=== PATIENT | female | born 1970 | race Caucasian/White ===

== ENCOUNTER → 2023-10-19 16:39 | Outpatient (REF) | payer OTHER, SELFPAY | LOC: HWRAD 16:39 | PROVIDERS: ATTENDING PHYSICIAN Physician Assistant Medical | DX: M54.2 Cervicalgia (principal); M54.50 Low back pain, unspecified | CPT/HCPCS: 72050; 72110 ==

== ENCOUNTER → 2023-11-20 10:30 | Outpatient (REF) | payer OTHER, SELFPAY | LOC: HWRAD 10:30 | PROVIDERS: ATTENDING PHYSICIAN Physician Assistant Medical | DX: M40.209 Unspecified kyphosis, site unspecified (principal) | CPT/HCPCS: 77080 ==

== ENCOUNTER 2023-12-13 10:53 | Outpatient (RCR) | payer OTHER, SELFPAY | END 2023-12-13 23:59 | disposition home or self-care (01) | LOC: RPT 10:53 | PROVIDERS: ATTENDING PHYSICIAN Physician Assistant Medical; FAMILY PHYSICIAN Nurse Practitioner | DX: M54.50 Low back pain, unspecified (principal); M40.209 Unspecified kyphosis, site unspecified; M54.2 Cervicalgia | CPT/HCPCS: 97010; 97110; 97112; 97140; 97162 ==

== ENCOUNTER 2023-12-19 12:52 | Outpatient (RCR) | payer OTHER, SELFPAY | END 2024-01-11 13:39 | disposition home or self-care (01) | LOC: RPT 12:52 | PROVIDERS: ATTENDING PHYSICIAN Physician Assistant Medical; FAMILY PHYSICIAN Nurse Practitioner | DX: M54.50 Low back pain, unspecified (principal); M40.209 Unspecified kyphosis, site unspecified; M54.2 Cervicalgia | CPT/HCPCS: 97010; 97110; 97112; 97140 ==

== ENCOUNTER → 2024-08-08 13:04 | Outpatient (REF) | payer OTHER, SELFPAY | LOC: WDC 13:04 | PROVIDERS: ATTENDING PHYSICIAN Nurse Practitioner Family | DX: Z12.31 Encounter for screening mammogram for malignant neoplasm of breast (principal) | CPT/HCPCS: 77063; 77067 ==

== ENCOUNTER → 2024-11-15 10:58 | Outpatient (REF) | payer OTHER, SELFPAY | LOC: WDC 10:58 | PROVIDERS: ATTENDING PHYSICIAN Nurse Practitioner Family; FAMILY PHYSICIAN Physician Assistant Medical | DX: R92.2 Inconclusive mammogram (principal) | CPT/HCPCS: 76641 ==

== ENCOUNTER 2025-03-23 00:27 | Emergency (ER) | payer OTHER, SELFPAY ==
[2025-03-23 00:41] VITALS: BP 119/71
[2025-03-23 01:05] LABS: Hematocrit 41.6 % (37.0-47.0); Hemoglobin 13.8 g/dL (12.0-16.0); Mean Corp Hgb Conc. 33.2 g/dL (33.0-37.0); Mean Corpuscular Volume 95.4 fL (81.0-99.0); Nucleated Red Blood Cells % 0 %; Platelet Count 164 10^3/uL (130-400); Red Cell Dist. Width 11.9 % (11.5-14.5)
[2025-03-23 01:34] LABS: ALT (SGPT) 17 U/L (0-35); AST (SGOT) 24 U/L (14-36); Albumin 4.6 g/dl (3.5-5.0); Alkaline Phosphatase 46 U/L (38-126); Blood Urea Nitrogen 28 mg/dl (7-17); Calcium 9.8 mg/dl (8.4-10.2); Carbon Dioxide 28 mmol/L (22-30); Chloride 104 mmol/L (98-107); Glucose 95 mg/dl (70-99); Lipase 46 U/L (23-300); Potassium 4.3 mmol/L (3.5-5.1); Sodium 138 mmol/L (135-145); Total Protein 7.2 g/dl (6.3-8.2); eGFR > 60.00
[2025-03-23 03:40] VITALS: BP 119/69; BMI 23.6
--- NOTE | 2025-03-23 04:32 | ED.GENMED ---
History of Present Illness
<David Sousa MD, Resident - Last Filed: 03/23/25 06:49>
General
Chief Complaint: Abdominal Pain
Source: patient
Exam Limitations: none
Time Seen by Provider: 03/23/25 04:29
History of Present Illness
History of Present Illness:
This is a 55-year-old female presenting to the emergency department for right-sided lower abdominal pain which started 3 days ago. She informed me that prior to the pain she had diarrhea for 2 days and she utilized 2 capsules of Imodium which
helped with diarrhea, she developed right sided lower abdominal pain which aggravates with any movement and gets better with rest. She rates the pain as 4/10. Reports she has some nausea but no vomiting. Denies any fever or chills, denies chest
pain, shortness of breath, cough, any neurological symptoms.
Denies any recent changes in the medical history
Past History
<David Sousa MD, Resident - Last Filed: 03/23/25 06:49>
Past History
ED Past Medical History: Asthma and Psychiatric (anxiety)
ED Past Surgical History: and Other (Abdominoplasty)
Patient has exhibited threatening behavior?: No
Social History
Tobacco: Non-smoker
Alcohol: None
Drug: None
Personal:
Living: with family
Employment: Employed
Family History
Family History: Hypertension
Review of Systems
<David Sousa MD, Resident - Last Filed: 03/23/25 06:49>
Review of Systems
Allergies reviewed?: Yes
Constitutional: Reports no symptoms
EENT: Reports no symptoms
Respiratory: Reports no symptoms
Cardiac: Reports no symptoms
ABD/GI: Reports abdominal pain and nausea
: Reports no symptoms
Musculoskeletal: Reports no symptoms
Skin: Reports no symptoms
Neurological: Reports no symptoms
Endocrine: Reports no symptoms
Hematologic/Lymphatic: Reports no symptoms
Psychiatric: Reports no symptoms
Phy Exam
<David Sousa MD, Resident - Last Filed: 03/23/25 06:49>
General Physical Exam
General Presentation: well appearing and mild distress
General age: appears stated age
General Skin: warm
General Habitus: normal
General Mental: alert
General Hydration: appears well hydrated
Cardiovascular Exam
Cardiovascular Exam: regular rate/rhythm and no murmur
Pulmonary Exam
Pulmonary Exam: lungs clear and no respiratory distress
Gastrointestinal Exam
Gastrointestinal Exam: normal bowel sounds, soft, guarding, rebound and tender
Neurological Exam
Neurological Exam: alert, oriented x3, no motor deficits and no sensory deficits
Course
<David Sousa MD, Resident - Last Filed: 03/23/25 06:49>
Orders/Labs/Results
Orders:
Orders
03/23/25 00:50
Complete Blood Count/With Diff Urgent
Comprehensive Metabolic Panel Urgent
Lactic Acid Urgent
Lipase Urgent
03/23/25 04:40
CT Abd/pelvis W Iv Cont Urgent
Comment:
Reason For Exam: RLQ abd pain
Abnormal Lab Results
03/23/25
00:50
MCH 31.7 H pg
(27.0-31.0)
BUN 28 H mg/dl
(7-17)
03/23/25 00:50
03/23/25 00:50
Vital Signs
Initial and Last Documented VS:
Initial Vital Signs
Temp Pulse Resp BP Pulse Ox
36.4 C 71 20 119/71 93
03/23/25 00:41 03/23/25 00:41 03/23/25 00:41 03/23/25 00:41 03/23/25 00:41
Last Documented Vital Signs
Temp Pulse Resp BP Pulse Ox
36.4 C 60 16 117/70 100
03/23/25 00:41 03/23/25 06:00 03/23/25 06:00 03/23/25 06:00 03/23/25 06:00
<Jas Bearden MD - Last Filed: 03/23/25 08:45>
Orders/Labs/Results
Orders:
Orders
03/23/25 00:50
Complete Blood Count/With Diff Urgent
Comprehensive Metabolic Panel Urgent
Lactic Acid Urgent
Lipase Urgent
03/23/25 04:40
CT Abd/pelvis W Iv Cont Urgent
Comment:
Reason For Exam: RLQ abd pain
Abnormal Lab Results
03/23/25
00:50
MCH 31.7 H pg
(27.0-31.0)
BUN 28 H mg/dl
(7-17)
03/23/25 00:50
03/23/25 00:50
Vital Signs
Initial and Last Documented VS:
Initial Vital Signs
Temp Pulse Resp BP Pulse Ox
36.4 C 71 20 119/71 93
03/23/25 00:41 03/23/25 00:41 03/23/25 00:41 03/23/25 00:41 03/23/25 00:41
Last Documented Vital Signs
Temp Pulse Resp BP Pulse Ox
36.4 C 60 16 117/70 100
03/23/25 00:41 03/23/25 06:00 03/23/25 06:00 03/23/25 06:00 03/23/25 06:00
<David Sousa MD, Resident - Last Filed: 03/23/25 06:49>
MDM/Problems Addressed
Differential Diagnosis Includes:
Appendicitis vs renal colic vs colitis vs less likely biliary colic vs less likely diverticulitis vs gynecological
MDM/Problems Addressed:
cbc is unremarkable, CMP unremarkable except BUN of 28.
Lactic acid and lipase within normal limits.
CT abd/pel with acute ascending colitis without perforation or obstruction. Appendix was normal. No cholecystitis, pancreatitis, or obstructing renal stone. Colonoscopy was recommended by radiologist to rule out any malignancy.
Recommend [place] diet and shared decision was made with patient for discharge and fu with GI outpatient.
<David Sousa MD, Resident - Last Filed: 03/23/25 06:49>
*Pulse Oximetry
SaO2: 100
Oxygen Mode of Delivery: Room air
Patient hypoxic: no
*Critical Care Note
Total Time (30-74mins, 75-104mins- exclusive of procedures): Not Applicable
ED Attending Note
<David Sousa MD, Resident - Last Filed: 03/23/25 06:49>
-
Portions of this chart may have been created with voice recognition software.� Occasional wrong word or��sound alike� substitutions may have occurred due to the inherent limitations of voice recognition software.
<Jas Bearden MD - Last Filed: 03/23/25 08:45>
ED Attending Note
Patient seen and examined by attending physician: Yes
I performed a history and physical exam of patient and discussed management with resident, I reviewed resident's note and agree with documented findings and plan of care.: Yes
ED Attending Note:
I have seen and evaluated the patient with a [id number] encounter. I have spoken to the resident and involved in the medical history, the physical exam, medical decision making.
Evaluation and management service: agree unless noted differently below.
Results interpretation: agree unless noted differently below.
Focused HPI: 55-year-old female with history as noted presents for evaluation of abdominal pain. Patient reports onset of symptoms a few days ago and have been constant since that time. Pain located in the right lower quadrant does not radiate.
She reports associated nonbloody diarrhea. Denies any nausea or vomiting. She denies any fever or chills. She denies any urinary symptoms. She is postmenopausal no vaginal bleeding. She denies having had similar symptoms in the past. She
reports prior abdominoplasty but no other abdominal surgeries.
Physical exam: Awake and alert nondistressed. Vital signs normal. She is tender to palpation right lower quadrant. No palpable masses. No CVA tenderness.
Medical Decision Makin-year-old female presents for evaluation of right lower quadrant pain associate with diarrhea for the past few days. Vitals and exam as above. Labs sent off including a CBC and a CMP which showed no clinically
significant abnormalities. Lipase normal. CT abdomen pelvis shows normal appendix but findings concerning for colitis on the right side. They did recommend follow-up colonoscopy. Suspect this is likely viral. Discussed with patient regarding
supportive care, bland diet and need for follow-up. At this point she is stable for discharge. Patient comfortable with this plan. All questions answered.
Discharge Plan
Departure
Patient Disposition: Home (Routine Discharge)
Date of Disposition: 03/23/25
Time of Disposition: 06:46
Patient with high blood pressure during this ER visit?: No
Discharge Problem:
Colitis
Instructions: Colitis - Discharge instructions, [place] diet
Prescriptions:
No Action
doxycycline monohydrate 100 MG tablet
100 mg PO DAILY
estradiol 1 MG tablet
1 mg PO DAILY
fluticasone propionate 1 SPRAY spray,suspension
1 spray intranasal BID
progesterone micronized 100 MG capsule
100 mg PO HS
budesonide-formoterol [Symbicort] 1 PUFF HFA aerosol inhaler
2 puff inhalation R BID
Referrals:
Melody Ricci CRNP [Family Provider, Family Practice]
Lara Phillips MD [Active, Gastroenterology] - Call in 1-3 days for appt
Activity Restrictions/Additional Instructions:
You were seen in the [facility] emergency department with concerns of right-sided lower abdominal pain. During your stay we performed blood work including CBC, CMP, lipase, lactic acid-labs came back negative. He also had CT abdomen pelvis
which showed acute ascending colitis without perforation or obstruction. Appendix was normal. No cholecystitis, pancreatitis, or obstructing renal stone. Colonoscopy was recommended by radiologist to rule out any malignancy after symptoms
improved.
Interventions
Interventions:
*Risk Screen - Suicide Last Done: 03/23/25 03:40
*General Assessment Last Done: 03/23/25 00:41
*Neglect/Abuse Screening Last Done: 03/23/25 03:40
*ED- Fall Risk Assessment Last Done: 03/23/25 03:40
*ED COVID-19 Vaccine History Last Done: 03/23/25 03:40
*Nursing Disposition Last Done: 03/23/25 06:56
PE-Xqifho-Pfqttaqkfe Assessment Last Done: 03/23/25 03:40
Discharge Date and Time
Discharge Date/Time: 03/23/25 06:57
Print Language: [place]
[2025-03-23 06:00] VITALS: BP 117/70
== END 2025-03-23 06:57 | disposition home or self-care (01) ==
LOC: EMR 00:27
PROVIDERS: EMERGENCY PHYSICIAN Emergency Medicine; FAMILY PHYSICIAN Nurse Practitioner
DX: K52.9 Noninfective gastroenteritis and colitis, unspecified (principal); J45.909 Unspecified asthma, uncomplicated; F41.9 Anxiety disorder, unspecified; Z82.49 Family history of ischemic heart disease and other diseases of the circulatory system
CPT/HCPCS: 99284; 74177; 80053; 83605; 83690; 85025; Q9967